=== PATIENT | male | born 1975 | race Caucasian/White ===

== ENCOUNTER 2024-04-18 08:00 | Day surgery (SDC) | payer OTHER ==
[~2024-04-18] VITALS: Ht 185.4 cm; Wt 100.0 kg
[~2024-04-18 08:00] MED LIST: CEFAZOLIN SODIUM 2 GM/20 ML SYR IV SCH; IBLOOD GLUCOSE TEST STRIP 1 EA TEST VI PRN; LACTATED RINGER'S 1,000 ML IV SCH; LIDOCAINE HCL 1% 5 ML SDV INJ ONE
[2024-04-18 08:18] VITALS: BP 117/76
--- NOTE | 2024-04-18 08:33 | NUR ---
EX IS RIDE HOME HAS TO WORK AROUND WORK HOPEFULLYN CAN BE HERE.
[2024-04-18] MEDS ORDERED: propofoL 200 MG/20 ML VIAL ONE (09:40)
[2024-04-18] MEDS ORDERED: LIDOCAINE HCL 2% 5 ML SDV ONE (09:40)
[2024-04-18] MEDS ORDERED: ACETAMINOPHEN 1,000 MG/100 ML VIAL ONE (09:40)
[2024-04-18] MEDS ORDERED: ondansetron HCL 4 MG/2 ML VIAL ONE (09:40)
[2024-04-18] MEDS ORDERED: DEXAMETHASONE SOD PHOS 4 MG/ML VIAL ONE (09:40)
[2024-04-18] MEDS ORDERED: KETAMINE in NS 50 MG/5 ML SYR ONE (09:40)
[2024-04-18] MEDS ORDERED: KETOROLAC TROMETHAMINE 30 MG/ML VIAL ONE ×3 (09:40→09:42)
[2024-04-18] MEDS ORDERED: fentaNYL citrate 100 MCG/2 ML VIAL ONE (09:40)
--- NOTE | 2024-04-18 10:14 | NUR ---
PT HAS BEEN UPDATED AT 930 AND 1015. DENIES ANY NEEDS. IV PATENT.
[2024-04-18] MEDS ORDERED: HYDROCODONE/ACETA 5/325 TAB PO PRN (10:15)
[2024-04-18] MEDS ORDERED: NALOXONE HCL 0.4 MG SYR IV PRN (10:45)
[2024-04-18] MEDS ORDERED: ondansetron HCL 4 MG/2 ML VIAL IV PRN (10:45)
[2024-04-18] MEDS ORDERED: IBLOOD GLUCOSE TEST STRIP 1 EA TEST VI PRN (10:45)
[2024-04-18] MEDS ORDERED: fentaNYL citrate 50 MCG/ML SDV IV PRN (10:45)
[2024-04-18] MEDS ORDERED: HYDROmorphone HCL 1 MG/ML SYR IV PRN (10:45)
[2024-04-18] MEDS ORDERED: HYDROCODON-ACE1 EA10 PO (10:50)
[2024-04-18] MEDS ORDERED: DICLOFENAC SODI75 MG PO (10:50)
[2024-04-18 11:09] VITALS: BP 125/68
--- NOTE | 2024-04-18 11:17 | NUR ---
04/18/24 1117 Mely Montgomery 1051-PT ARRIVES TO PACU VIA STRETCHER, RESTING SEMI FOWLERS, PT A+OX4 DENIES PAIN OR NAUSEA, VSS ON RA. ICE PACK APPLIED TO RT KNEE. 1108-PT TAKEN BACK TO DAYSURGERY VIA STRETCHER, BEDSIDE REPORT GIVEN TO RN, ALL QUESTIONS ANSWERED. PT SITTING UP IN BED TALKING TO STAFF, DENIES PAIN OR NAUSEA, VSS ON RA.
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
--- NOTE | 2024-04-18 11:42 | NUR ---
1140 WENT IN TO ROOM PT HAS PULLED OWN IV OUT AND TORE OFF ERIST BANDS STATES I WANT OUYT OF HERE WORKING ON GETTING A RIDE. THIS WAS CONVEYED TO DR BAUTISTA.
[2024-04-18 11:45] VITALS: BP 119/73
--- NOTE | 2024-04-18 11:48 | NUR ---
IM READY TO WALK HOME.
[2024-04-18] MEDS ORDERED: SEVOFLURANE 250 ML BTL INH ONE (12:56)
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
--- NOTE | 2024-04-18 13:24 | NUR ---
PT DID NOT TAKE DC INSTRUCTIONS, PICTURES AND APPT . PUT IN MEDICAL RECORDS.
[2024-04-18] MEDS ORDERED: DICLOFENAC SOD 75 MG TABEC PO SCH (21:00)
--- NOTE | 2024-04-20 07:13 | OR ---
[facility] [address], [place] [address] Signed DATE OF OPERATION: 04/18/2024 SURGEON: Marla Dalton MD PREOPERATIVE DIAGNOSIS: Right medial meniscus tear. POSTOPERATIVE DIAGNOSIS: Right medial meniscus tear. PROCEDURE PERFORMED: Right knee arthroscopy with partial medial meniscectomy. GRANTS ADMINISTRATOR: Ila Zamora PA-C. Ila was present, critical for all portions of procedure. ANESTHESIA: General. BLOOD LOSS: Minimal. BRIEF HISTORY: Shine is a 48-year-old gentleman, who has painful instability in his knee. MRI was consistent with a large posteromedial meniscus tear. Risks, benefits, and alternatives of surgery were discussed with him. He elected to proceed. Once consent was obtained, he was taken to the operating room. It should be noted that on their way he became a little bit belligerent, talking about the Robbie Tzu and did not appreciating the weight. He eventually was placed under general anesthesia and his leg was prepped and draped in a standard sterile fashion. The portal sites were injected with 0.25% Marcaine with epinephrine and a standard inferolateral and superolateral portals were established. The scope was introduced into the knee. ARTHROSCOPIC FINDINGS: The patella showed minimal chondromalacia in good alignment. 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 Medial and lateral gutters were clear. ACL, PCL were intact. Lateral compartment was intact. Medial compartment showed two areas of grade 4 chondromalacia, one anterior medially and one posteriorly right in the midportion. There was a large complex tear posteromedially. Electronically Signed By: MARLA DALTON MD 04/20/24 0713 PATIENT NAME: SHINE TAPIA OPERATIVE REPORT DATE OF : 75 REPORT #: [id number] PHYSICIAN: MARLA DALTON MD PCP: NO PRIMARY CARE PHYSICIAN REPORT IS CONFIDENTIAL AND NOT TO BE RELEASED WITHOUT AUTHORIZATION [facility] [address], [place] [address] Signed DESCRIPTION OF OPERATION: After establishing the medial portal using a spinal needle, the straight and curved biters were used to trim the meniscus back to a stable rim. This was then smoothed, then feathered using the shaver and all debris was evacuated. Several small chondral flaps on the medial femoral condyle were debrided as well. The scope was then withdrawn. Portals were closed with 3-0 nylon and the knee was injected with 60 mg of Toradol. The wound was dressed with Adaptic, ABD, and Mejia wrap. He tolerated the procedure well. All sponge, needle, and instrument counts were correct. Marla Dalton MD BA/KARELYL /[id number] Copies: ~ Electronically Signed By: MARLA DALTON MD 04/20/24 0713 PATIENT NAME: SHINE TAPIA RICHA OPERATIVE REPORT DATE OF : 75 REPORT #: [id number] PHYSICIAN: MARLA DALTON MD PCP: NO PRIMARY CARE PHYSICIAN REPORT IS CONFIDENTIAL AND NOT TO BE RELEASED WITHOUT AUTHORIZATION
== END 2024-04-18 12:55 | disposition home or self-care (01) ==
LOC: DS 08:00
PROVIDERS: ATTEND Specialist
DX: S83.231A Complex tear of medial meniscus, current injury, right knee, initial encounter (principal); M94.261 Chondromalacia, right knee; F17.210 Nicotine dependence, cigarettes, uncomplicated; Z88.0 Allergy status to penicillin
CPT/HCPCS: 01400; J0131; J0690; J1100; J1885; J2003; J2405; J2704; J3010; J3490; J7121